=== PATIENT | female | born 1975 | race Caucasian/White ===

== ENCOUNTER 2022-06-02 07:14 | Outpatient (CLI) | payer BC, SELFPAY ==
--- NOTE | 2022-06-02 08:48 | W.ANESCHARGE ---
Anesthesia Charges Start Date/Time Anesthesia Start Date: 06/02/22 Anesthesia Start Time: 08:04 Stop Date/Time Anesthesia Stop Date: 06/02/22 Anesthesia Stop Time: 08:42 Summary Emergency: No
--- NOTE | 2022-06-02 10:45 | W.ANESCHARGE ---
Anesthesia Charges Start Date/Time Anesthesia Start Date: 06/02/22 Anesthesia Start Time: 08:04 Stop Date/Time Anesthesia Stop Date: 06/02/22 Anesthesia Stop Time: 08:42 Summary Emergency: No
== END 2022-06-02 07:15 | disposition home or self-care (01) ==
PROVIDERS: PCP Physician Assistant Medical; Visit Provider Surgery
DX: Z12.11 Encounter for screening for malignant neoplasm of colon (principal); K64.4 Residual hemorrhoidal skin tags; Z83.71 Family history of colonic polyps
CPT/HCPCS: 00812; 45378; J2704

== ENCOUNTER 2022-09-02 09:39 | Outpatient (CLI) | payer BC, SELFPAY ==
[2022-09-02 13:50] LABS: Albumin* 4.2 g/dL (3.3-5.0); Chloride* 105 mmol/L (96-114); Sodium* 140 mmol/L (135-149)
[2022-09-02 13:51] LABS: Potassium* 4.6 mmol/L (3.6-5.1)
[2022-09-02 13:52] LABS: Cholesterol* 181 mg/dL (90-199)
[2022-09-02 13:53] LABS: Alanine Aminotransferase* 18 U/L (4-35); Alkaline Phosphatase* 64 U/L (40-150); Aspartate Amino Transferase* 21 U/L (12-35); Bilirubin Total* 0.5 mg/dL (0.1-1.5); Blood Urea Nitrogen* 13 mg/dL (5-24); Carbon Dioxide* 29 mmol/L (20-32); Creatinine* 0.7 mg/dL (0.5-1.5); Estimated Glomerular Filt Rate 107 ml/min; Glucose* 83 mg/dL (60-115); HDL Cholesterol* 43 mg/dL (>=50); Triglycerides* 138 mg/dL (40-149)
[2022-09-02 13:54] LABS: LDL Cholesterol Calculated 110 mg/dL (<100)
== END 2022-09-02 09:40 | disposition home or self-care (01) ==
PROVIDERS: PCP Physician Assistant Medical; Visit Provider Physician Assistant Medical
DX: Z01.419 Encounter for gynecological examination (general) (routine) without abnormal findings (principal); Z13.6 Encounter for screening for cardiovascular disorders; Z13.29 Encounter for screening for other suspected endocrine disorder
CPT/HCPCS: 80053; 80061; 84443

== ENCOUNTER 2024-02-15 14:54 | Outpatient (CLI) | payer BC, SELFPAY | END 2024-02-15 14:55 | disposition home or self-care (01) | LOC: LKVREF 14:55 | PROVIDERS: PCP Physician Assistant Medical; Visit Provider Nurse Practitioner Family | DX: R50.9 Fever, unspecified (principal); J02.9 Acute pharyngitis, unspecified | CPT/HCPCS: 86618 ==

== ENCOUNTER 2024-03-11 11:39 | Outpatient (CLI) | payer BC, SELFPAY | END 2024-03-11 11:40 | disposition home or self-care (01) | LOC: LKVREF 11:40 | PROVIDERS: PCP Physician Assistant Medical; Visit Provider Nurse Practitioner Family | DX: J02.9 Acute pharyngitis, unspecified (principal); R53.83 Other fatigue | CPT/HCPCS: 87070; 87186 ==

== ENCOUNTER 2024-06-15 09:23 | Outpatient (CLI) | payer BC, SELFPAY ==
[2024-06-21 18:40] LABS: HPV Source Cervix; HPV, High Risk by TMA Not Detected
== END 2024-06-15 09:24 | disposition home or self-care (01) ==
PROVIDERS: Visit Provider Registered Nurse
DX: Z12.4 Encounter for screening for malignant neoplasm of cervix (principal)
CPT/HCPCS: 87624; 87625; 88141; 88142

== ENCOUNTER 2024-06-28 10:34 | Outpatient (CLI) | payer MEDICAID, SELFPAY ==
--- NOTE | 2024-06-28 10:45 | CRLHL7_ITS ---
For Patients: As a result of the Century Cures Act, medical imaging exams and procedure reports are released immediately into your electronic medical record. You may view this report before your referring provider. If you have questions, please contact your health care provider. CLINICAL HISTORY: Pelvic pain TECHNIQUE: 2D martinez scale and color Doppler images were acquired of the pelvis using a transvaginal approach. FINDINGS: Intramural fibroid within the mid left uterus measures 1.8 x 1.8 x 1.7 cm. Posterior intramural fibroid is present on the right measuring 2.2 x 1.7 x 1.8 cm. Calcified fibroid is present within the lower uterine segment on the right measuring 2.1 x 1.2 x 2.1 cm. The endometrial lining appears heterogeneous and measures 14 mm in thickness. The left ovary measures 2.8 x 2.1 x 1.8 cm in size and the right ovary is not visualized. The left ovary demonstrates normal arterial and venous blood flow on color Doppler analysis. There are no suspicious fluid collections within the cul-de-sac. IMPRESSION: Multiple intramural fibroids measuring up to 2.2 cm. Heterogeneous endometrium measuring 14 millimeters. Dictated by Nestor Ozuna MD @ 06/28/2024 12:20:57 PM (Electronically Signed)
== END 2024-06-28 10:35 | disposition home or self-care (01) ==
PROVIDERS: Visit Provider Registered Nurse
DX: R10.2 Pelvic and perineal pain (principal); D25.1 Intramural leiomyoma of uterus; R93.89 Abnormal findings on diagnostic imaging of other specified body structures
CPT/HCPCS: 76830; 76856

== ENCOUNTER 2024-09-05 15:06 | Outpatient (CLI) | payer BC, SELFPAY ==
--- NOTE | 2024-09-05 15:00 | CRLHL7_ITS ---
For Patients: As a result of the Century Cures Act, medical imaging exams and procedure reports are released immediately into your electronic medical record. You may view this report before your referring provider. If you have questions, please contact your health care provider. BILATERAL SCREENING MAMMOGRAM WITH COMPUTER-AIDED DETECTION AND TOMOSYNTHESIS TECHNIQUE: CC and MLO views were obtained. These mammographic images have been obtained using full-field digital technique. These mammographic images were interpreted with the benefit of computer-aided detection. Breast Tomosynthesis was used in this interpretation. COMPARISON FILM: 02/04/23. FINDINGS: There are scattered areas of fibroglandular density IMPRESSION: There is no radiographic evidence for malignancy. ASSESSMENT: BI-RADS Category 1: Negative RECOMMENDATION: Routine screening mammogram in 1 year. A lay language report of this examination will be provided to the patient. Nestor Ozuna M.D. Diagnostic Radiologist [email or web address] CONSTANTINE/steve Transcribed: 4:42 p.leora wilson/Dictated by: Nestor Ozuna MD @ 09/06/2024 11:01:00 AM (Electronically Signed)
== END 2024-09-05 15:07 | disposition home or self-care (01) ==
PROVIDERS: Visit Provider Registered Nurse
DX: Z12.31 Encounter for screening mammogram for malignant neoplasm of breast (principal)
CPT/HCPCS: 77063; 77067

== ENCOUNTER 2025-05-19 17:30 | Emergency (ER) | payer BC, SELFPAY ==
--- OUTSIDE RECORDS SUMMARY | 2025-05-19 17:32 | XMS_ITS | Clinical Summary ---
Author Organization [facility] Address [address] [place] [id number] Care Team Providers Care Geodetic Technician Name Role Phone Pcp, No Primary Care Provider Unavailabl e Allergies Active Allergy Reactions Criticality Noted Date Comments Buspirone Anxiety,Other - Desc ribe In Comment Field 09/30/2020 Serotonin syndrome Prazosin Hives 09/30/2020 Increased heart rate Pseudoephedrine Other - Describe In Comment Field 03/21/2019 Worsening runny nose, watering eyes. Quinolones Other - Describe In Comment Field 03/11/2019 acilles tendon pain Medications medication order composer Take 1 Tablet by mouth. Active MAGNESIUM ORAL Take 1 Tablet by mouth. Active medication order composer Take 1 g by mouth once daily. Active VITAMIN C, ASCORBATE CALCIUM, ORAL Take 1 Dose by mouth. Active VITAMIN B COMPLEX ORAL Take 1 Capsule by mouth once daily. Active oxyCODONE (ROXICODONE) 5 mg immediate release tabletIndicatio ns:Injury of finger of right hand, initial encounter Take 1 Tablet (5 mg) by mouth every 8 hours if needed for Pain. 6 Tablet 10/12/2024 Active Active Problems No known active problems Encounters Date Type Department Care Team Description 03/14/2025 4:00 PM CDT Procedure Only [facility] [address] [facility] [address] [place] [id number] Terrance Garcia L Ac Acupuncture 03/14/2025 Travel from Last 3 Months Immunizations Immunization Administration Dates Next Due Hepatitis B (Adult) 06/28/2000,05/27/2000 Hepatitis B, Unspecified 12/24/2000 INFLUENZA, IIV3 PF (AGE >= 6 MO) 06/01/2013,11/0 11/2009 Influenza A (H1N1), Inactiva laila (Age >=3 Years) 07/22/2009 Influenza, IIV3 (Age >=3 years) 08/03/2008 Influenza, IIV4 09/25/2019,08/28/2015 Influenza,CCIIV4 PRESERV FREE 10/01/2016 Td (Age >=7 Years) 07/12/2002,09/19/1993 Tdap 10/12/2024,03/29/2014,06/21/2013 Social History Tobacco Use Types Packs/Day Years Used Date Smoking Tobacco: Never Passive Smoke Exposure: Never Smokeless Tobacco: Never Alcohol Use Standard Drinks/Week Comments Not Currently 0 (1 standard drink = 0.6 oz pur e alcohol) Comments No Sex and Gender Information Value Date Recorded Sex Assigned at Not on file Legal Sex Female 8:00 PM CITY SOLICITOR Gender Identity Not on file Sexual Orientation Not on file Obstetrics History Last Filed Vital Signs Vital Sign Reading Time Taken Comments Blood Pressure 137/97 10/27/2024 10:00 AM CITY SOLICITOR Pulse 84 10/27/2024 10:00 AM CITY SOLICITOR Temperature 36.6 C (97.9 F) 10/27/2024 10:00 AM CITY SOLICITOR Respiratory Rate 17 10/27/2024 10:00 AM CITY SOLICITOR Oxygen Saturation 97% 10/27/2024 10:00 AM CITY SOLICITOR Inhaled Oxygen Concentration - - Weight 86.2 kg (190 lb) 10/27/2024 10:00 AM CITY SOLICITOR Height - - Body Mass Index - - Plan of Treatment Upcoming Encounters Date Type Department Care Team (Late st Contact Info) Description 06/28/2025 11:30 AM CDT Procedure Only [facility] [address] [facility] [address] [place] [address] Terrance Garcia L Ac [address] [facility] [address] [place], [place] [id number] Health Maintenance Due Date Last Done Comments Depression screening for age 12+ 1986 HIV for age 15-65 1989 BMI (ht and wt on same day) for age 18+ 1992 Hepatitis C screening for ag e 18-79 1992 Colonoscopy through age 75 2019 Lipids for age 45-75 2019 Mammogram for age 45-75 2019 Pap test for age 21-65 01/31/2021 01/31/2018, 2017 COVID-19 vaccine series (1 - 2023-25 season) 2024 Pneumococcal series for age 50+ (1 of 1 - PCV) 2024 Zoster (shingles) series for age 50+ (1 of 2) 2024 Influenza Vaccine (#1) 2025 , 10/01/2016, 08/28/2015, Additional history exists Tetanus booster 10/12/2034 10/12/2024, 03/20, 06/21/2013, Additional history exists RSV vaccine for adults or (1 - 1-dose 75+ series) 2049 Hepatitis B series for 19+ Completed 12/24, 06/28/2000, 05/27/2000 Procedures Procedure Name Priority Date/Time Associated Diagnosis Comments WIRE PHOTO OPERATOR NEWS THIN PREP PAP SCREEN IMAGED Routine 01/31/2018 10:14 AM CDT from Last 3 Months or Most Recently Relevant to Health Maintenance Results * WIRE PHOTO OPERATOR NEWS THIN PREP PAP SCREEN IMAGED (01/31/2018 10:14 AM CDT) Case Report Gynecologic Cytology Report Case: [id number] Authorizing Provider: Krysta Espinal PA-C Collected: 01/31/2018 1014 First Screen: Jorge Mcwilliams Received: 02/02/2018 1014 Specimen: WIRE PHOTO OPERATOR NEWS ThinPrep Vial Screening, Cervical/Vaginal 02/09/2018 9:43 AM CDT [facility] ENTRAL LABORAT[facility] INTERPRETATION/ RESULT NEGATIVE FOR INTRAEPITHELIAL LESION OR MALIGNANCY (NIL) (none) 02/09/2018 9:43 AM CDT [facility] ENTRAL LABORAT[facility] at 0943 CDT SPECIMEN ADEQUACY Satisfactory for evaluation Endocervical component present 02/09/2018 9:43 AM CDT [facility] ENTRAL LABORATORY HPV REQUEST HPV and PAP 02/09/2018 9:43 AM CDT [facility] Date of LMP 01/11/2018 02/09/2018 9:43 AM CDT [facility] Last Pap Date 02/09/2018 9:43 AM CDT [facility] Comment:02/2012 Last Pap Result NIL 8 9:43 AM CDT [facility] Automated Review Successful 02/09/2018 9:43 AM CDT [facility] Comment:Specimen processed s uccessfully by automated chemistry physics teacher device, [employer] Imaging System, [employer] ANCILLARY TESTING WIRE PHOTO OPERATOR NEWS HPV Ordered, Please see separate report 02/09/2018 9:43 AM CDT [facility] Note The pap test is a screening technique, not a diagnostic procedure. It is used primarily to screen for squamous cancers and precursor lesions. Published studies have shown that it is subject to both false negative and false positive results. The pap test should not be used as the sole means to diagnose or exclude pre-malignant and malignant lesions. Interpreted at [facility] ([facility], [facility], [facility], [facility], [facility], [facility], [facility]) 02/09/2018 9:43 AM CDT [facility] Other (Cervical/Vagina l) 01/31/2018 10:14 AM CDT 02/02/2018 10:14 AM CDT december Teddy [facility]ABEL PATHOLOGY/CYTOLOGY Final R esult [facility] [address] [place] [address], [place] from Last 3 Months or Most Recently Relevant to Health Maintenance Insurance [facility] Member Subscriber Plan / Payer (Ef fective 2024-Present) Name:Temitope Parry L Relation to Subscriber:Self Name:Temitope Parry Payer ID:[id number] (NAIC) Group ID:[id number] Type:Not on file Address: [place] [id number] Care Teams Geodetic Technician Relationship Specialty Start Date End Date Pcp, No . PCP - General 12/09/22
--- OUTSIDE RECORDS SUMMARY | 2025-05-19 17:32 | XMS_ITS | Clinical Summary ---
Author Organization [facility] Address [address] [place] [address] Care Team Providers Care Human Geography Instructor Name Role Phone Tammi Luna APRN, COMMERCIAL LENDER Primary Care Provider Lily vailable Source Comments You are receiving this document as you are listed as the primary care provider,follow-up provider, or the patient has been referred to you for consultation.This is in compliance with the Medicare and[facility] EHR Incentive Program,which states Providers who transition their patient to another setting of careor provider of care or refers their patient to another provider of care shouldprovide summary care record for each transition of care or referral. [facility] Allergies No known active allergies Medications Norgestimate-Et h Estradiol (ORTHO-CYCLEN, 28,) 0.25-35 MG-MCG tablet Take 1 tablet by mouth daily (every 24 hours). LW Addl Instr:Follow package directions. 28 3 6 Active Additional Information Patient not taking.Reported on 09/30/2018 fluticasone (FLONASE) 50 MCG/ACT nasal solution Place 2 Sprays into both nostrils daily. 8 Active Active Problems No known active problems Immunizations Immunization Administration Dates Next Due HepB Adult (Engerix-B, 20+ yrs, 3 dose series) 1 ,05/27/2000 HepB, Unspecified Formulation 12/24/2000 Td 07/12/2002,09/19/1993 Family History Medical History Relation Name Comments Amblyopia/Strabismus Negative Family History Blindness Negative Family History Cataract Negative Family History Glaucoma Negative Family History Macular Degeneration Negative Family History Retinal Detachment Negative Family History Social History Tobacco Use Types Packs/Day Years Used Date Smoking Tobacco: Never Smokeless Tobacco: Never Alcohol Use Standard Drinks/Week Comments Not Currently 0 (1 standard drink = 0.6 oz pur e alcohol) Comments Unknown Sex and Gender Information Value Date Recorded Sex Assigned at Not on file Legal Sex Female 7:10 AM CDT Gender Identity Not on file Sexual Orientation Not on file Last Filed Vital Signs Vital Sign Reading Time Taken Comments Blood Pressure 116/78 11/02/2005 3:07 PM CONSULTING ANALYST Pulse - - Temperature 36.8 C (98.2 F) 11/02/2005 3:07 PM CONSULTING ANALYST ORAL C: 36.8 C Respiratory Rate - - Oxygen Saturation - - Inhaled Oxygen Concentration - - Weight 79.4 kg (174 lb 15.7 oz) 11/02/2005 3:07 PM CONSULTING ANALYST C: 79.4kg Height 167.6 cm (5' 6) 06/03/2005 9:36 AM CDT C: 167.6cm Body Mass Index 28.24 06/03/2005 9:36 AM CDT Plan of Treatment Health Maintenance Due Date Last Done Comments Mammogram 1974 Adult Preventive Visit 1992 Colonoscopy 04/29/2005 04/28/2005, 03/19/2005 Cervical Cancer Screening Due 02/26/2012 02/25/2012, 12/18/2003, 07/12/2002, Additional history exists Cholesterol 2019 12/01/2004, 11/20, 06/09/1999 DTaP/Tdap/Td Vaccine (3 - Tdap) 03/29/2024 03/29/2014, 06/21/2013, 07/12/2002, Additional history exists COVID-19 Vaccine (1 - 2023-25 season) 2024 Pneumococcal Vaccine 50+ Yrs (1 of 1 - PCV) 2024 Zoster/Shingles Vaccine (1 of 2) 2024 Influenza Vaccine (#1) 2025 , 10/01/2016, 08/28/2015, Additional history exists HepB Vaccine Completed 12/24/2000, 05/2000, 05/27/2000 HIV Screening (Preventive Services) Completed 12/18/2003 Hep C Screening (Preventive Services) Completed 12/18/2003 HepA Vaccine Aged Out No longer eligi ble based on patient's age to complete this topic Hib Vaccine Aged Out No longer eligi ble based on patient's age to complete this topic IPV (Polio) Vaccine Aged Out No longe r eligible based on patient's age to complete this topic MCV4 Vaccine Aged Out No longer eligi ble based on patient's age to complete this topic Meningococcal B Vaccine Aged Out No l onger eligible based on patient's age to complete this topic Procedures Procedure Name Priority Date/Time Associated Diagnosis Comments ENDOSCOPY, COLON, SCREENING/DIAGNOSTIC Routine 04/28/2005 4:55 PM CDT CHOLESTEROL, TOTAL AND HDL Routine 12/01/2004 8:59 AM CONSULTING ANALYST ANATOMICAL PATH LIQUID BASED Routine 12/18/2003 10:17 AM CONSULTING ANALYST HIV ANTIBODY Routine 12/18/2003 8:38 AM CONSULTING ANALYST HEPATITIS C ANTIBODY, WITH REFLEX (ANTI-HCV) Routine 12/18/2003 8:38 AM CONSULTING ANALYST from Last 3 Months or Most Recently Relevant to Health Maintenance Results * Endoscopy, colon, diagnostic (04/28/2005 4:55 PM CDT) Anatomical Region Laterality Modality Other us User Conversion ET GI PROCEDURE ORDERABLES Final Result * Cholesterol, Total and HDL (12/01/2004 8:59 AM CONSULTING ANALYST) Cholesterol/HDL Ratio Screen 4.5 No normal range HP CONVERSION Cholesterol 185 125 - 199 mg/dL HP CONVERSION HDL Cholesterol 41 40 - 60 mg/dL HP CONVERSION 12/01/2004 8:59 AM CONSULTING ANALYST us Bruno Wright PA-C LAB_1 Final Result HP CONVERSION * Pap Smear (12/18/2003 10:17 AM CONSULTING ANALYST) PAP Smear Liquid Based SEE TEXT No normal range HP CONVERSION Comment: Patient: REE HADLEY CERVICAL CYTOLOGY REPORT Pathology # [id number] Date Obtained: Date Received: CYTOLOGIC IMPRESSION: Negative for intraepithelial lesion or malignancy. ADDITIONAL DATA LMP: 2 1/2 WKS CLINICAL HIST PREV NORM 07-12-02,ACC 99206, NEG HX LIQUID BASED PAP CERVICAL SPECIMEN ADEQUACY: Satisfactory. ENDOCERVICAL CELLS: Present. Verified 12/25/03 by: LKR (electronic signature) 12/18/2003 10:1 7 AM CONSULTING ANALYST Ellie Hernández PA-C LAB_1 Final Resul t HP CONVERSION * HIV Antibody (12/18/2003 8:38 AM CONSULTING ANALYST) HIV 1/HIV 2 Non Reac Non Reac HP CONVERSION 12/18/2003 8:38 AM CONSULTING ANALYST Ellie Hernández PA-C LAB_1 Final Resul t HP CONVERSION * Hepatitis C Antibody, with Reflex (12/18/2003 8:38 AM CONSULTING ANALYST) Hepatitis C Antibody Non Reac Non Reac HP CONVERSION 12/18/2003 8:38 AM CONSULTING ANALYST Ellie Hernández PA-C LAB_1 Final Resul t HP CONVERSION from Last 3 Months or Most Recently Relevant to Health Maintenance Care Teams Human Geography Instructor Relationship Specialty Start Date End Date Tammi Luna, PHOTOGRAPH INSPECTOR, COMMERCIAL LENDER PCP - General 12/22/10
[2025-05-19 17:34] VITALS: BP 146/96; PULSE 100; RESP 18; TEMP 37.1; O2SAT 98; BMI 30.1
--- NOTE | 2025-05-19 18:08 | CT_ITS ---
Patient: REE KO Facility:?[facility] RIS Patient ID:?[id number] Site Patient ID:?[id number]. Site :?[id number] Study:?CT-Head Angio W/ 95CC ISOVUE 370-05/19/2025 6:35:23 PM Ordering Physician:Francisca Garcia Final Report: INDICATION: Acute stroke. TECHNIQUE: CTA head using intravenous contrast with bolus tracking, 3D angiographic rendering using maximum intensity projection (MIP) and images permanently archived. CTA neck using intravenous contrast with bolus tracking, 3D angiographic rendering using maximum intensity projection (MIP) and images permanently archived. FINDINGS: CTA head: There is normal opacification of the intracranial vasculature. There is no large vessel occlusion or significant intracranial stenosis. No aneurysm is identified. CTA neck: There is no significant carotid artery stenosis or dissection. There is no significant vertebral artery stenosis or dissection. IMPRESSION: No acute intracranial abnormality at CTA. No significant carotid or vertebral artery stenosis or dissection. Please note that all CT scans at this facility use dose modulation, iterative reconstruction, and/or weight-based dosing when appropriate to reduce radiation dose to as low as reasonably achievable. Dictated by Dwight Umana MD @ 05/19/2025 8:20:48 PM Signed by:?Dwight Umana MD @05/19/2025 8:20:48 PM (Electronic Signature)
--- NOTE | 2025-05-19 18:08 | CRLHL7_ITS ---
For Patients: As a result of the Century Cures Act, medical imaging exams and procedure reports are released immediately into your electronic medical record. You may view this report before your referring provider. If you have questions, please contact your health care provider. INDICATION: Neurologic deficit. TECHNIQUE: CT of the head without contrast. Coronal and sagittal reformats are included. COMPARISON: Head CT from 09/10/2019. FINDINGS: Postsurgical changes of left posterior frontal/parietal craniotomy and subjacent wedge-shaped cavity. No CT evidence of acute ischemia. No acute intracranial hemorrhage. No CT evidence of acute ischemia. No midline shift or herniation. No acute osseous abnormalities. Mastoid air cells and paranasal sinuses are clear. Normal soft tissues. IMPRESSION: IMPRESSION: 1. No acute intracranial pathology. 2. Stable postoperative changes. Please note that all CT scans at this facility use dose modulation, iterative reconstruction, and/or weight-based dosing when appropriate to reduce radiation dose to as low as reasonably achievable. Dictated by Tobi Baeza MD @ 05/19/2025 6:39:58 PM (Electronically Signed)
--- NOTE | 2025-05-19 18:43 | ED_ITS ---
HPI - General Adult General Chief complaint: Extremity Pain/Injury, Lower Stated complaint: Can't feel left foot Time Seen by Provider: 05/19/25 17:56 Source: patient Mode of arrival: ambulatory Limitations: no limitations History of Present Illness HPI narrative: 49-year-old female presenting today with the inability to feel the left lower extremity from the knee down. Patient states she was canoeing for a while and when she got out of the canoe she put her left foot on the ground and fell over. States she could feel anything. She then had to hobble to her car to get help. She denies back pain. She denies loss of bladder or bowel function, no saddle anesthesia. She denies difficulty speaking. She states that she has had a headache for a couple of days now. She does have a history of a brain tumor that has required 2 procedures. She denies any recent fevers or chills. She feels like her feeling is coming back. This occurred approximately 3-1/2 hours ago. Related Data Home Medications ?Medication ?Instructions ?Recorded ?Confirmed No Known Home Medications 06/09/2404/22 Allergies Allergy/AdvReac Type Severity Reaction Status Date / Time Quinolones Allergy Severe Tendon pain Verified 05/19/25 18:16 Quinazolinones Allergy Intermediate achilles Verified 05/19/25 18:16 tendon - gets snappy shellfish derived Allergy Intermediate Joint Pain Verified 05/19/25 18:16 pseudoephedrine Allergy Unknown Verified 05/19/25 18:16 Review of Systems Status of ROS: Reports: 10 or more systems reviewed and unremarkable except as noted in History and below PFSH PFSH Medical History Abuse Family history of colon cancer ?Z80.0 - Family history of malignant neoplasm of digestive organs (ICD-10) Suicidal ideation ?R45.851 - Suicidal ideations (ICD-10) Surgical History H/O craniotomy ?Z98.890 - Other specified postprocedural states (ICD-10) History of colonoscopy ?Z98.890 - Other specified postprocedural states (ICD-10) History of laparoscopic cholecystectomy ?Z90.49 - Acquired absence of other specified parts of digestive tract (ICD- 10) History of hand surgery ?Z98.890 - Other specified postprocedural states (ICD-10) Family History Father Liver cancer Esophageal cancer Alcohol dependence Sister Ovarian cancer, Onset Age: 32 Mother Colonic polyp Leukemia Other Colon cancer Social History Narrative: Currently unemployed. 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 Does not drink alcohol Does not use illicit drugs Non-smoker Smoking Status: Never smoker Exam Narrative: Exam Narrative: Well-nourished well-developed patient, very anxious. Alert and oriented. Answers questions appropriately. Patient speaks in full sentences without needing to catch their breath. HEENT: Normocephalic atraumatic. Pupils are equally round reactive to light. Extraocular muscles are intact. Conjunctivae are moist without any icterus noted. Moist mucous membranes. Cardiovascular: Heart is regular rate and rhythm S1 and S2 are present without any murmurs. Lungs: Clear to auscultation bilaterally no wheezes rhonchi or rales are appreciated. Patient takes deep breaths without any discomfort. Extremities: Bilateral lower extremities are without edema. Normal DP and PT pulses. Skin: Well perfused without any obvious rashes. Strength is 5/5 of the upper extremities. Patient has full strength of the lower extremities of the proximal muscle groups, but cannot flex or extend at the ankles, cannot wiggle her toes. But she can fer and invert at the ankle. Reflexes are 2+ and symmetric at the knees. Cranial nerves 3-12 are normal. There is no nystagmus either horizontally or vertically. Patient raises the leg to clear the ground, but foot is flexed when she does this. Const: Vital Signs, click to edit/add: Vital Signs - 24 hr 05/19/25 17:34 05/19/25 18:45 Temperature 98.8 F Pulse Rate 108 H Pulse Rate [Right Pulse Oximeter] 100 Respiratory Rate 18 Blood Pressure [Ri ght Upper Arm] 146/96 H Pulse Oximetry 98 96 Oxygen Delivery Me thod Room Air Course Course ED Course: Differential diagnoses includes pinch peripheral nerve, anxiety, stroke. Patient proceeded to head CT and head neck CTA. All imaging unremarkable. I consulted with stroke neurology at [facility], Dr. Aburto who examined the patient, looked at her imaging and felt that an MRI tonight would be important to definitively rule out stroke. In the meantime patient did have worsening anxiety. At this time I did offer her IV Ativan which did help quite a bit. Upon reexamination she is able to flex and extend the foot but not on command. When asked to extend or flex the foot on command she had sometimes do the opposite of what was asked and stated that she could not control her foot. We did speak to Dr. Sanford, ER physician at [facility] who will accept the patient as an ED to ED transferred for MRI. Patient was hemodynamically stable improving. She requested to go by private vehicle and I think that this is reasonable at this time since she really is not a candidate for thrombolytics given her history of brain tumor and the fact that her symptoms are better. This was discussed with her by myself and by Dr. Aburto and patient understood. Vital Signs Vital signs: Initial Vital Signs Temperature 98.8 F 05/19/25 17:34 Temperature Source Temporal Artery Scan 05/19/25 17:34 Pulse Rate 100 05/19/25 17:34 Pulse Rhythm Regular 05/19/25 17:34 Pulse Strength 3+ Normal 05/19/25 17:34 Respiratory Rate 18 05/19/25 17:34 Blood Pressure 146/96 H 05/19/25 17:34 Blood Pressure Mean 112 H 05/19/25 17:34 Blood Pressure Position Sitting 05/19/25 17:34 Pulse Oximetry 98 05/19/25 17:34 Oxygen Delivery Method Room Air 05/19/25 17:34 Vital Signs Temperature 98.8 F 05/19/25 17:34 Pulse Rate 100 05/19/25 17:34 Respiratory Rate 18 05/19/25 17:34 Blood Pressure 146/96 H 05/19/25 17:34 Pulse Oximetry 98 05/19/25 17:34 Oxygen Delivery Method Room Air 05/19/25 17:34 Temperature 98.8 F 05/19/25 17:34 Pulse Rate 108 H 05/19/25 18:45 Respiratory Rate 18 05/19/25 17:34 Blood Pressure 146/96 H 05/19/25 17:34 Pulse Oximetry 96 05/19/25 18:45 Oxygen Delivery Method Room Air 05/19/25 17:34 Medical Decision Making MDM Narrative Medical decision making narrative: 49-year-old female focal neurologic deficits. Will be transferred to [place] for MRI. Imaging Data CT scan - head: Attestation: I have reviewed the pertinent imaging results. Radiologist's impression: TECHNIQUE: CT of the head without contrast. Coronal and sagittal reformats are included. COMPARISON: Head CT from 09/10/2019. FINDINGS: Postsurgical changes of left posterior frontal/parietal craniotomy and subjacent wedge-shaped cavity. No CT evidence of acute ischemia. No acute intracranial hemorrhage. No CT evidence of acute ischemia. No midline shift or herniation. No acute osseous abnormalities. Mastoid air cells and paranasal sinuses are clear. Normal soft tissues. IMPRESSION: IMPRESSION: 1. No acute intracranial pathology. 2. Stable postoperative changes. Head neck CTA: Attestation: I have reviewed the pertinent imaging results. Radiologist's impression: Study:?CT-Head Angio W/ 95CC ISOVUE 370-05/19/2025 6:35:23 PM Ordering Physician:Francisca Garcia Final Report: INDICATION: Acute stroke. TECHNIQUE: CTA head using intravenous contrast with bolus tracking, 3D angiographic rendering using maximum intensity projection (MIP) and images permanently archived. CTA neck using intravenous contrast with bolus tracking, 3D angiographic renderi ng using maximum intensity projection (MIP) and images permanently archived. FINDINGS: CTA head: There is normal opacification of the intracranial vasculature. There is no large vessel occlusion or significant intracranial stenosis. No aneurysm is identified. CTA neck: There is no significant carotid artery stenosis or dissection. There is no significant vertebral artery stenosis or dissection. IMPRESSION: No acute intracranial abnormality at CTA. No significant carotid or vertebral artery stenosis or dissection. Discharge Plan Discharge Clinical Impression: Focal neurological deficit Patient Disposition: [facility] Condition: Stable Additional Instructions: Proceed directly to the emergency department at [facility] for continued care at this time per the recommendation of stroke neurologist, Dr. Maldonado. Prescriptions: No Action No Known Home Medications Stand Alone Forms: [id number] Instructions
[2025-05-19 18:45] VITALS: PULSE 108; O2SAT 96
[2025-05-19 20:39] VITALS: BP 164/106; PULSE 98; RESP 16; TEMP 36.4; O2SAT 96
== END 2025-05-19 20:42 | disposition short-term general hospital (02) ==
PROVIDERS: Emergency Provider Family Medicine
DX: R29.818 Other symptoms and signs involving the nervous system (principal)
CPT/HCPCS: 70450; 70496; 70498; 99285; Q9967